=== PATIENT | female | born 1950 | race Caucasian/White ===

== ENCOUNTER → 2021-07-02 13:29 | Outpatient (CLI) | payer OTHER, SELFPAY | PROVIDERS: PCP Internal Medicine; Referring Provider Physician Assistant Surgical; Visit Provider Physician Assistant Surgical | DX: Z11.52 Encounter for screening for COVID-19 (principal) | CPT/HCPCS: 87635; U0005; U0003 ==

== ENCOUNTER → 2022-12-05 | Outpatient (CLI) | payer OTHER, SELFPAY ==
--- NOTE | 2022-12-05 12:46 | BI_ITS ---
MAMMOGRAPHY - BILATERAL SCREENING REASON FOR EXAM: Female, 72 years old. Routine annual screening examination. PERTINENT HISTORY: Sister with breast cancer. TECHNIQUE: Digital bilateral breast elen (3D mammographic acquisition) in the CC and MLO projections. 2-D mediolateral oblique (MLO) and craniocaudad (CC) views of both breasts were obtained. CAD: Full Field Digital Mammography with Computer Added Detection was performed. COMPARISON: Comparison is made with prior examination July 29, 2013. FINDINGS: Breast Composition: There are scattered areas of fibroglandular density. There are no dominant masses or suspicious calcifications. Stable small benign-appearing bilateral axillary lymph nodes. There is a 3.8 mm calcified nodule in the deep central medial aspect of the left breast. No other significant abnormalities are identified. There has been no significant change since the prior study. BI/SCRN MAMM (CAD)W/ELEN BILAT IMPRESSION: Stable bilateral screening mammogram. Yearly follow-up mammogram recommended. (A) ASSESSMENT CATEGORY: BIRADS Category 2: Benign. A letter regarding these results will be sent to the patient by the facility within 30 days. Approximately 10% of breast cancers are not detected by mammography. A normal mammogram should not delay biopsy of a clinically suspicious abnormality. [id number] Electronically Signed: Juan M Blakely MD at 14:11 EST ,
--- NOTE | 2022-12-05 12:46 | US_ITS ---
STUDY: THYROID ULTRASOUND REASON FOR EXAM: Female, 72 years old. Enlarged thyroid. TECHNIQUE: Ultrasound evaluation of the thyroid was performed with real-time and static forman-scale imaging. COMPARISON: FINDINGS: RIGHT LOBE: The right lobe of the thyroid gland measures 4.5 x 1.6 x 1.8 cm. There is a homogeneous echotexture. There are multiple small anechoic foci. In the mid thyroid there is a 1.0 x 0.8 x 0.9 cm predominantly cystic nodule with internal linear septations. Normal vascularity on Doppler imaging. LEFT LOBE: The left lobe of the thyroid gland measures 3.7 x 1.1 x 1.4 cm. There is a homogeneous echotexture. In the mid thyroid. There is a 1.4 x 0.6 x 1.0 cm hypoechoic nodule with minimal through transmission. In the lower pole there is a 0.6 x 0.4 x 0.4 cm markedly hypoechoic nodule. Normal vascularity and Doppler imaging. ISTHMUS: The isthmus measures 0.2 cm. The regional lymph nodes are normal. US/Thyroid IMPRESSION: 1. Predominantly cystic nodule in the right thyroid. This is considered benign, TR 1, and requires no FNA or follow-up by TI-RADS categorization. 2. Hypoechoic nodule in the mid left thyroid. This is considered moderately suspicious, TR 4. Recommended follow-up thyroid ultrasound at 1, 2, 3 and 5 years. 3. Small hypoechoic nodule in the lower pole of the left thyroid. This is considered moderately suspicious, TR 4. No FNA or follow-up is necessary due to its small size. Electronically Signed: Jono See DO at 17:44 EST ,
--- NOTE | 2022-12-05 13:10 | BD_ITS ---
STUDY: DUAL ENERGY X-RAY ABSORPTIOMETRY / DXA REASON FOR EXAM: Female, 72 years old. Z780 -- postmenopausal TECHNIQUE: Bone Mineral Density (BMD) measurements of lumbar spine and bilateral hips were obtained. COMPARISON: Comparison is made with prior study dated March 31, 2018. FINDINGS: Lumbar Spine (L1-L4): g/cm2 (0.896) / T-score (-1.3) / Z-score (0.9) Findings are suggestive of osteopenia with a low fracture risk. Left Femur Total: g/cm2 (0.786) / T-score (-1.3) / Z-score (0.3) Left Femoral Neck: g/cm2 (0.654) / T-score (-1.8) / Z-score (0.1) Right Femur Total: g/cm2 (0.774) / T-score (-1.4) / Z-score (0.2) Right Femoral Neck: g/cm2 (0.637) / T-score (-1.9) / Z-score (-0.1) The T-Scores on the most recent prior examination were: Lumbar Spine (L1-L4): There has been worsening of bone density since the previous examination. Left Femur Total: which represents a worsening of 2.6%. Right Femur Total: which represents a worsening of 3.7%. BD/Dexa Bone Density Study IMPRESSION: The patient is considered osteopenic as outlined below according to World Ulises Organization (WHO) criteria with a moderate fracture risk. There has been worsening of bone density since the previous examination. Reference Information: The T-score is the number of standard deviations above or below the standard which is normal for young adults at their peak bone mineral density. The World Health Organization (WHO) interprets the T-scores as follows: Above -1 Normal bone density Between -1 and -2.5 Osteopenia Equal to / or below -2.5 Osteoporosis As a practical clinical guideline, osteopenia may be graded as follows: Mild -1 through -1.5 Moderate -1.6 through -2.0 Severe -2.1 through -2.4 The Z-score is the number of standard deviations above or below age-matched controls. A Z-score of less than -1.5 would be considered abnormal. References: 1. NIH Osteoporosis and Related Bone Diseases www osteo.org 2. International Society for Clinical Densitometry www iscd.org 3. National Osteoporosis Foundation www nof.org Electronically Signed: Juan M Blakely MD at 13:37 EST ,
== END | disposition home or self-care (01) ==
LOC: OPBD 12:43
PROVIDERS: PCP Nurse Practitioner Family; Visit Provider Nurse Practitioner Family
DX: Z12.31 Encounter for screening mammogram for malignant neoplasm of breast (principal); Z78.0 Asymptomatic menopausal state; E04.9 Nontoxic goiter, unspecified
CPT/HCPCS: 76536; 77063; 77067; 77080

== ENCOUNTER → 2023-04-15 | Outpatient (CLI) | payer MEDICARE, SELFPAY ==
--- NOTE | 2023-04-15 12:41 | ART_ITS ---
Reason For Study: HLD, Leg swelling, Abnormal SYDNEE Procedure A bilateral lower extremity continuous wave Doppler with analog waveform analysis and ankle brachial indexes. Left Segmental Pressures Left brachial= 107mmHg. Left posterior tibial artery = 127mmHg. Left dorsalis pedis artery = 114mmHg. The left dorsalis pedis waveforms are triphasic. The left posterior tibial artery waveforms are triphasic. Right Segmental Pressures Right brachial= 105mmHg. Right posterior tibial artery = 133mmHg. Right dorsalis pedis artery = 129mmHg. The right dorsalis pedis waveforms are triphasic. The right posterior tibial artery waveforms are triphasic. Indices The right ankle brachial index by the dorsalis pedis is 1.21. The right ankle brachial index by the posterior tibial artery is 1.24. The left ankle brachial index by the dorsalis pedis is 1.07. The left ankle brachial index by the posterior tibial artery is 1.19. VL/Ankle Brachial Index Interpretation Summary Right SYDNEE 1.24, normal. Doppler/PVR waveforms of the right leg normal at rest. Left SYDNEE 1.19, normal. Doppler/PVR waveforms of the left leg normal at rest. Ordering Physician: Edi Bolden Referring Physician: EDI BOLDEN TOPPIECE CHOPPER Performed By: Sanjuana Munson RVT
== END | disposition home or self-care (01) ==
LOC: CVS 12:41
PROVIDERS: PCP Nurse Practitioner Family; Referring Provider Nurse Practitioner Family; Visit Provider Nurse Practitioner Family
DX: I73.9 Peripheral vascular disease, unspecified (principal)
CPT/HCPCS: 93922

== ENCOUNTER 2024-04-28 12:59 | Outpatient (CLI) | payer MEDICARE, SELFPAY ==
[2024-04-28 15:19] LABS: Color, Urine Yellow (Yellow); Glucose, Dipstick Normal (Normal); Ketone-Dipstick Negative (Negative); Leukocyte Esterase-Dipstick Negative /ul (Negative); Nitrite-Dipstick Negative (Negative); Occult Blood-Urine Negative /ul (Negative); Protein-Dipstick Negative (Negative); Urine Bilirubin Dipstick Negative (Negative); Urine Clarity Clear (Clear); Urine Urobilinogen Normal (Normal)
[2024-04-28 15:24] LABS: Absolute Lymphocyte Count 3.52 X10^3/uL (0.83-4.51); Absolute Neutrophil Count 2.7 X10^3/uL (2.0-7.7); Basophil# 0.05 X10^3/uL; Basophil% 0.7 % (0-1); Eosinophil# 0.48 X10^3/uL; Eosinophils% 6.5 % (0-5); Hematocrit 41.3 % (37-47); Hemoglobin 13.7 g/dL (12.0-15.0); Lymphocyte # 3.52 X10^3/ul (0.83-4.51); Lymphocyte % 47.6 % (19-41); Mean Corp Hgb Conc 33.2 g/dL (32-36); Mean Corpuscular Hgb 29.5 pg (27.0-32.0); Monocyte# 0.62 X10^3/uL; Monocyte% 8.4 % (0-10); NRBC Flagged by Analyzer 0 % (0-5); Neutrophil # 2.71 X10^3/uL (2.7-7.7); Neutrophil % 36.7 % (47-70); Platelet Count 240 K/mm3 (150-450); RBC Distribution Width SD 42.2 fl (35.1-43.9); Red Blood Count 4.64 M/mm3 (4.2-5.4); White Blood Count 7.4 K/mm3 (4.4-11.0)
[2024-04-28 15:45] LABS: Vitamin B12 1088 pg/mL (211-911); Vitamin D,25 Hydroxy 62.8 ng/mL
[2024-04-28 16:03] LABS: Hemoglobin A1c 5.5 % (3.8-5.6)
[2024-04-28 16:12] LABS: AST(SGOT) 21 U/L (15-37); Alanine Aminotransfer ALT/SGPT 31 U/L (13-56); Albumin, Serum 3.5 g/dL (3.2-5.0); Alkaline Phosphatase 100 U/L (45-117); Anion Gap 4 (5-15); BUN 13 mg/dL (7-18); BUN/Creat Ratio 13.4 RATIO (10-20); Calcium,Total 9.5 mg/dL (8.5-10.1); Chloride 107 mmol/L (98-107); Cholesterol 253 mg/dL (200); Creatinine, Serum 0.97 mg/dL (0.55-1.02); EST Glomerular Filtration Rate 60 mL/min (>60); Est Glom Filt Rate - Afr Amer 73 mL/min (>60); Globulin 3.5 g/dL (2.2-4.2); Glucose 99 mg/dL (74-106); High Density Lipoprotein 78 mg/dL; Sodium Level 140 mmol/L (136-145); Thyroid Stim Hormone (TSH) 0.68 uIU/mL (0.358-3.74); Triglycerides 73 mg/dL; Very Low Density Lipoprotein 15 mg/dL (5-40)
[2024-04-28 16:25] LABS: Microalbumin,Random Urine < 5.0 mg/L (NO RANGE EST.)
== END 2024-04-28 23:59 | disposition home or self-care (01) ==
PROVIDERS: PCP Nurse Practitioner Family; Referring Provider Nurse Practitioner Family; Visit Provider Nurse Practitioner Family
DX: E04.1 Nontoxic single thyroid nodule (principal); R73.9 Hyperglycemia, unspecified; E55.9 Vitamin D deficiency, unspecified; E78.5 Hyperlipidemia, unspecified; R40.0 Somnolence
CPT/HCPCS: 36415; 80053; 80061; 81002; 82043; 82306; 82570; 82607; 82746; 83036; 84443; 85025

== ENCOUNTER → 2024-05-12 | Outpatient (CLI) | payer MEDICARE, SELFPAY ==
--- NOTE | 2024-05-12 12:54 | US_ITS ---
STUDY: THYROID ULTRASOUND REASON FOR EXAM: Female, 74 years old. thyroid nodule TECHNIQUE: Ultrasound evaluation of the thyroid was performed with real-time and static forman-scale imaging. COMPARISON: 12/05/2022 FINDINGS: RIGHT LOBE: The right lobe of the thyroid gland measures 4.2 x 1.7 x 1.5 cm. There is a heterogeneous echotexture. Nodule 1: No change in the 13 x 9 x 10 mm mixed cystic and solid hypoechoic wider than tall smoothly marginated nodule with no echogenic foci (TR 3) in the mid right lobe consistent with an adenoma. LEFT LOBE: The left lobe of the thyroid gland measures 3.7 x 1.1 x 1.2 cm. There is a heterogeneous echotexture. Nodule 2: No change in the 13 x 6 x 9 mm solid hypoechoic wider than tall ill-defined marginated nodule with no echogenic foci (TR 4) the anterior left lobe and follow-up ultrasound is recommended in 1 year. ISTHMUS: The isthmus measures 1 mm thick . The regional lymph nodes are normal. US/Thyroid IMPRESSION: No change in multinodular thyroid gland and follow-up ultrasound is recommended in 1 year. Electronically Signed: Marcin Spears MD at 11:58 EDT ,
--- NOTE | 2024-05-12 13:27 | BI_ITS ---
MAMMOGRAPHY - BILATERAL SCREENING REASON FOR EXAM: Female, 74 years old. Routine annual screening examination. PERTINENT HISTORY: Sister with breast cancer. TECHNIQUE: Digital bilateral breast elen (3D mammographic acquisition) in the CC and MLO projections. 2-D mediolateral oblique (MLO) and craniocaudad (CC) views of both breasts were obtained. CAD: Full Field Digital Mammography with Computer Added Detection was performed. COMPARISON: Comparison is made with prior study dated December 05, 2022 and July 29, 2013. FINDINGS: Breast Composition: There are scattered areas of fibroglandular density. There are no dominant masses or suspicious calcifications. Stable 3.8 mm calcified nodule in the deep central medial aspect of the left breast. Stable small bilateral axillary lymph nodes. No other significant abnormalities are identified. There has been no significant change since the prior study. BI/SCRN MAMM (CAD)W/ELEN BILAT IMPRESSION: Stable bilateral screening mammogram. Yearly follow-up mammogram recommended. (A) ASSESSMENT CATEGORY: BIRADS Category 2: Benign. A letter regarding these results will be sent to the patient by the facility within 30 days. Approximately 10% of breast cancers are not detected by mammography. A normal mammogram should not delay biopsy of a clinically suspicious abnormality. [id number] Electronically Signed: Juan M Blakely MD at 15:12 EDT ,
== END | disposition home or self-care (01) ==
LOC: US 12:52
PROVIDERS: PCP Nurse Practitioner Family; Referring Provider Nurse Practitioner Family; Visit Provider Nurse Practitioner Family
DX: Z12.31 Encounter for screening mammogram for malignant neoplasm of breast (principal); Z80.3 Family history of malignant neoplasm of breast; E04.1 Nontoxic single thyroid nodule
CPT/HCPCS: 76536; 77063; 77067

== ENCOUNTER → 2024-11-24 | Outpatient (CLI) | payer MEDICARE, SELFPAY ==
--- NOTE | 2024-11-24 07:52 | ECHOD_ITS ---
Reason For Study Reason For Study: ASD REPAIR, EVAL Procedure This was a 2D Doppler, Color Flow transthoracic echocardiogram. Exam performed in department. Left Ventricle Normal LV size. The estimated ejection fraction is 60 %. No evidence for diastolic dysfunction. No regional wall motion abnormalities noted. Right Ventricle Normal RV size. Normal systolic function. Atria The left and right atria are normal. No doppler evidence for ASD. Bubble contrast study negative for right to left interatrial shunt. Mitral Valve There is no mitral valve stenosis. Trivial mitral valve insufficiency. Tricuspid Valve There is no tricuspid stenosis. Mild tricuspid valve insufficiency. Pulmonary artery systolic pressure is 25 mmHg. Aortic Valve Trisinus/trileaflet aortic valve. There is no aortic stenosis. No aortic valve insufficiency. Pulmonic Valve There is no pulmonic valvular stenosis. No pulmonic valve insufficiency. Great Vessels Normal sized aortic root. Pericardium/Pleural No pericardial effusion. Medication 22 gauge I.V. with prn adaptor inserted into right arm. Performed a rapid injection of agitated mix of 9 cc saline and 1cc air to assess for atrial septal defect. MMode/2D Measurements & Calculations LVIDd: 4.1 cm IVSd: 0.81 cm Ao root diam: 2.9 cm LVIDs: 2.7 cm LVPWd: 0.99 cm RVDd: 3.1 cm FS: 34.3 % LAV(MOD-bp): 37.6 ml LVAd ap4: 22.2 cm2 SV(MOD-sp4): 38.1 ml LAV(MOD-bp) Indexed: 22.2 ml/m2 LVLd ap4: 6.9 cm SI(MOD-sp4): 22.5 ml/m2 LAV(MOD-sp2): 34.1 ml EDV(MOD-sp4): 60.1 ml LAV(MOD-sp4): 37.4 ml EDV(sp4-el): 60.8 ml LVAs ap4: 12.2 cm2 LVLs ap4: 5.7 cm ESV(MOD-sp4): 22.0 ml ESV(sp4-el): 22.2 ml EF(MOD-sp4): 63.4 % EF(sp4-el): 63.5 % SV(sp4-el): 38.6 ml LA A4 area: 16.2 cm2 LA dimension(2D): 3.0 cm RA A4 area: 14.9 cm2 TAPSE: 1.8 cm Time Measurements MV dec time: 0.20 sec Doppler Measurements & Calculations MV E max mushtaq: 80.4 cm/sec Lat Peak E' Mushtaq: 10.6 cm/sec Med Peak E' Mushtaq: 9.0 cm/sec MV A max mushtaq: 67.6 cm/sec E/E' lat: 7.6 E/E' med: 8.9 MV E/A: 1.2 Ao V2 max: 103.1 cm/sec LV V1 max: 86.0 cm/sec PA V2 max: 75.8 cm/sec Ao max P.3 mmHg LV V1 max P.0 mmHg TR max mushtaq: 214.6 cm/sec TR max P.4 mmHg ECHO/Echo Complete Interpretation Summary The estimated ejection fraction is 60 %. No evidence for diastolic dysfunction. Trivial mitral valve insufficiency. Ordering Physician: Dolores Bolden Referring Physician: Dolores Bolden Performed By: Elizabeth Burns RDCS
== END | disposition home or self-care (01) ==
PROVIDERS: PCP Nurse Practitioner Family; Referring Provider Nurse Practitioner Family; Visit Provider Nurse Practitioner Family
DX: R06.00 Dyspnea, unspecified (principal); Q21.10 Atrial septal defect, unspecified
CPT/HCPCS: 93306; A4216

== ENCOUNTER → 2024-12-07 | Outpatient (CLI) | payer MEDICARE, SELFPAY ==
--- NOTE | 2024-12-07 09:36 | BD_ITS ---
PROCEDURE: DEXA BONE DENSITY STUDY REASON FOR EXAM: F, age 74 y/o . Postmenopausal. TECHNIQUE: DEXA scan of the lumbar spine and both hips. COMPARISON: Comparison is made with prior study dated December 05, 2022. FINDINGS: Lumbar Spine (L1-L4): g/cm2 (0.866)/T-score (-1.5)/Z-score (0.6) findings are suggestive of osteopenia with a low fracture risk. Left Femur Total: g/cm2 (0.757)/T-score (-1.5)/Z-score (0.1) Left Femoral Neck: g/cm2 (0.625)/T-score (-2.0)/Z-score (-0.1) Right Femur Total: g/cm2 (0.764)/T-score (-1.5)/Z-score (0.2) Right Femoral Neck: g/cm2 (0.620)/T-score (-2.1)/Z-score (-0.1) The T-Scores on the most recent prior examination were: Lumbar Spine (L1-L4): There has been worsening of bone density since the previous examination. Left Femur Total: Worsening of 3.6%. Right Femur Total: Worsening of 1.2%. BD/Dexa Bone Density Study IMPRESSION: The patient is considered osteopenic as outlined below according to World Ulises Organization (WHO) criteria with a moderate fracture risk. There has been worsening of bone density since the previous exa mination. Reading Location: [place] [id number]
== END | disposition home or self-care (01) ==
LOC: OPBD 09:24
PROVIDERS: PCP Nurse Practitioner Family; Referring Provider Nurse Practitioner Family; Visit Provider Nurse Practitioner Family
DX: Z78.0 Asymptomatic menopausal state (principal)
CPT/HCPCS: 77080

== ENCOUNTER → 2025-05-31 | Outpatient (CLI) | payer MEDICARE, SELFPAY ==
[2025-05-31 15:26] LABS: Hematocrit 42.2 % (37-47); Hemoglobin 14.3 g/dL (12.0-15.0); Immature Granulocytes Count 0.020 X10^3/uL (0.0-0.0); Mean Corp Hgb Conc 33.9 g/dL (32-36); Mean Corpuscular Volume 91.3 fL (81-99); Mean Platelet Vol. 11.1 fl (6.2-12.0); NRBC Flagged by Analyzer 0 % (0-5); Platelet Count 244 K/mm3 (150-450); RBC Distribution Width CV 12.9 % (11.6-14.6); RBC Distribution Width SD 42.2 fl (35.1-43.9); Red Blood Count 4.62 M/mm3 (4.2-5.4); White Blood Count 7.9 K/mm3 (4.4-11.0)
[2025-05-31 15:58] LABS: AST(SGOT) 26 U/L (<=31); Alanine Aminotransfer ALT/SGPT 36 U/L (<=34); Albumin, Serum 4.3 g/dL (3.4-4.8); Alkaline Phosphatase 108 U/L (35-104); Anion Gap 10 (5-15); BUN 11 mg/dL (4-19); BUN/Creat Ratio 14.2 RATIO (10-20); Calcium,Total 9.8 mg/dL (7.6-11.0); Carbon Dioxide 26.1 mmol/L (21.0-32.0); Chloride 106 mmol/L (98-108); Cholesterol 250 mg/dL (<=200); Globulin 2.4 g/dL (2.2-4.2); Glucose 96 mg/dL (70-99); Low Density Lipoprotein Calc. 154 mg/dL; Magnesium 2.2 mg/dL (1.5-2.2); Potassium 4.2 mmol/L (3.3-5.1); Triglycerides 93 mg/dL; Very Low Density Lipoprotein 19 mg/dL (5-40); cholesterol:hdl ratio screen 3.21
== END | disposition home or self-care (01) ==
LOC: MTLAB 11:42
PROVIDERS: PCP Nurse Practitioner Family; Referring Provider Nurse Practitioner Family; Visit Provider Nurse Practitioner Family
DX: E78.5 Hyperlipidemia, unspecified (principal); R79.89 Other specified abnormal findings of blood chemistry
CPT/HCPCS: 36415; 80053; 80061; 83735; 85025

== ENCOUNTER → 2025-06-09 | Outpatient (CLI) | payer MEDICARE, SELFPAY ==
--- NOTE | 2025-06-09 12:45 | BI_ITS ---
EXAM: SCRN MAMM (CAD)W/ELEN BILAT DATE: 06/09/2025 CLINICAL HISTORY: F, Age 75 y/o , SCREENING FOR MALIGNANT NEOPLASM OF BREAST Sister with breast cancer. TECHNIQUE: Procedure Code: [id number] Modality: MG Procedure: SCRN MAMM (CAD)W/ELEN BILAT COMPARISON: Prior exam(s) dated May 12, 2024.. FINDINGS: TISSUE DENSITY: There are scattered areas of fibroglandular density. Bilateral Breast Mammographic Findings: No significant masses, calcifications or other abnormalities are identified. Stable 4 mm calcified nodule in the deep central medial aspect of the left breast. Stable small benign-appearing bilateral axillary lymph nodes. No suspicious masses, areas of developing architectural distortion, or suspicious calcifications. There has been no significant interval change. BI/SCRN MAMM (CAD)W/ELEN BILAT IMPRESSION: Stable bilateral screening mammogram. OVERALL FINAL ASSESSMENT BI-RADS 2: BENIGN RECOMMENDATION: Routine annual follow-up in 1 Year A letter with findings and recommendations will be mailed to the patient. Reading Location: [id number]
--- NOTE | 2025-06-09 12:46 | US_ITS ---
PROCEDURE: THYROID 06/09/2025 REASON FOR EXAM: THYROID NODULE TECHNIQUE: Procedure Code: USTHY Modality: US Procedure: THYROID COMPARISON: Prior study dated May 12, 2024. FINDINGS: Right thyroid lobe size: 4.2 cm x 1.7 cm x 2.2 cm Left thyroid lobe size: 3.9 cm x 1.3 cm 1.4 cm Isthmus: 0.2 cm Background parenchymal echotexture is homogeneous. Nodules: . Lobe: Left, Location: Anterior upper lobe, Size: 1.3 cm x 0.9 cm x 0.6 cm, Stability: Stable Composition: Mixed cystic and solid (+1) Echogenicity: Hypoechoic (+2) Margin: Smooth (+0) Shape: Wider than tall (+0) Echogenic Foci: None (+0) TI-RADS: 3. This is stable. . Lobe: Right, Location: Upper, Size: 0.7 cm 0.8 cm 0.8 cm, Stability: Stable Composition: Mixed cystic and solid (+1) Echogenicity: Hypoechoic (+2) Margin: Smooth (+0) Shape: Wider than tall (+0) Echogenic Foci: None (+0) TI-RADS: 3 Stable 5 mm x 4 mm x 5 mm hypoechoic nodule in the midportion of the left lobe as well as a 4 mm x 3 mm x 4 mm cyst in the left lobe. Stable 3 mm x 3 mm x 4 mm complex cyst in the right lobe. US/Thyroid IMPRESSION: Stable examination. 12 month follow-up recommended. RECOMMENDATION: Based on most suspicious nodule. Nodule size = largest diameter Only evaluate nodule if =>5 mm. Growth > 20% in 2 dimensions = worsening. Follow up to 4 nodules. Recommend biopsy for no more than 2 nodules. Reading Location: [facility]
== END | disposition home or self-care (01) ==
PROVIDERS: PCP Nurse Practitioner Family; Referring Provider Nurse Practitioner Family; Visit Provider Nurse Practitioner Family
DX: Z12.31 Encounter for screening mammogram for malignant neoplasm of breast (principal); Z80.3 Family history of malignant neoplasm of breast
CPT/HCPCS: 76536; 77063; 77067